=== PATIENT | female | born 1995 | race Two or more races ===

== ENCOUNTER 2019-03-10 16:16 | Inpatient (IN) | payer MEDICAID ==
[~2019-03-10] VITALS: Ht 180.3 cm; Wt 148.1 kg
--- NOTE | 2019-03-10 16:59 | NUR ---
Pt presents to ED with c/o 10/10 vaginal pain s/p 2 weeks from . Pt states she has "heavy vaginal bleeding at night" and foul smelling vaginal odor. Pt connected to NIBP cuff and continous pulse ox monitor. Call light within reach. NADN. No other needs expressed.
[2019-03-10] MEDS ORDERED: HYDROmorphone 1 MG/ML, 1ML VIAL ONE ×3 (17:22→19:31)
[2019-03-10] MEDS ORDERED: ONDANSETRON 2MG/ML, 2ML ONE (17:22)
[2019-03-10] MEDS: HYDROmorphone 2 MG/ML, 1ML IVPush PRN ×2 (17:25→18:01)
[2019-03-10] MEDS ORDERED: SODIUM CHLORIDE FLUSH 10ML SYR IVF ONE (17:30)
[2019-03-10] MEDS ORDERED: ONDANSETRON 2MG/ML, 2ML IVPush ONE (17:30)
[2019-03-10 17:39] LABS: BASOPHILS # (AUTO) 0.06 x10^3/uL (0-0.1); BASOPHILS % (AUTO) 0 % (0-1); EOSINOPHILS # (AUTO) 0.13 x10^3/uL (0-0.4); EOSINOPHILS % (AUTO) 1 % (1-7); LYMPHOCYTES # (AUTO) 1.82 x10^3/uL (1-3.4); LYMPHOCYTES % (AUTO) 12 % (22-44); MD NO; MEAN CORPUSCULAR HEMOGLOBIN 30.3 pg (27.0-34.8); MEAN CORPUSCULAR HGB CONC 32.6 g/dL (32.4-35.8); MEAN CORPUSCULAR VOLUME 92.8 fL (80-100); MEAN PLATELET VOLUME 9.2 fL (7.4-10.4); MONOCYTES # (AUTO) 1.07 x10^3/uL (0.2-0.8); MONOCYTES % (AUTO) 7 % (2-9); NEUTROPHILS # (AUTO) 12.45 x10^3/uL (1.8-6.8); NEUTROPHILS % (AUTO) 80 % (42-75); PLATELET COUNT 383 x10^3/uL (130-400); RED BLOOD COUNT 4.03 x10^6/uL (3.82-5.3); RED CELL DISTRIBUTION WIDTH 14.4 % (9.6-15.2)
[2019-03-10 17:51] LABS: ALBUMIN 3.5 g/dL (3.4-5.0); ANION GAP 7 mmol/L (5-15); CALCIUM 8.9 mg/dL (8.5-10.1); CHLORIDE 106 mmol/L (98-107)
[2019-03-10 17:58] LABS: ALANINE AMINOTRANSFERASE 38 U/L (12-78); ALKALINE PHOSPHATASE 83 U/L (45-117); BILIRUBIN,TOTAL 1.3 mg/dL (0.2-1.0); CREATININE 0.78 mg/dL (0.55-1.02); TOTAL PROTEIN 8.3 g/dL (6.4-8.2)
--- NOTE | 2019-03-10 18:52 | NUR ---
Provided report to MARLEEN Morgan. All questions answered. NADN. Eddie RN to assume care of pt at this time.
--- NOTE | 2019-03-10 18:55 | NUR ---
REPORT OF PT FROM MARLEEN GUERIN AND ASSUMING CARE OF PT AT THIS TIME.
[2019-03-10 19:03] LABS: MICROSCOPIC INDICATED
[2019-03-10 19:07] LABS: CULTURE INDICATED? YES
[2019-03-10] MEDS ORDERED: HYDROmorphone 2 MG/ML, 1ML IV ONE (19:30)
[2019-03-10] MEDS ORDERED: CLINDAMYCIN PMX 900MG/50ML 50 ML IV ONE (20:00)
[2019-03-10] MEDS ORDERED: GENTAMICIN PER PHARMACY MC PRN (20:00)
[2019-03-10] MEDS ORDERED: GENTAMICIN 200 MG in SODIUM CHLORIDE 0.9% 50 ML IV ONE (20:05)
[2019-03-10] MEDS ORDERED: PHARMACOKINETIC CONSULTATION MC ONE (20:30)
--- NOTE | 2019-03-10 20:48 | NUR ---
PT MEDICATED WITH ABX PER MAR AFTER BC X 2 DRAWN
[2019-03-10] MEDS: SODIUM CHLORIDE 0.9% 1,000 ML IV SCH (20:50)
[2019-03-10] MEDS ORDERED: ONDANSETRON ODT 4 MG PO PRN (21:00)
[2019-03-10] MEDS ORDERED: PHARMACY MAY ADJ FOR RENAL FX MC SCH (21:00)
[2019-03-10] MEDS ORDERED: ACETAMINOPHEN 325 MG TABLET PO PRN (21:00)
[2019-03-10] MEDS ORDERED: DOCUSATE 100 MG CAPSULE PO PRN (21:00)
[2019-03-10] MEDS ORDERED: BISACODYL 10 MG SUPP PR PRN (21:00)
[2019-03-10] MEDS ORDERED: POLYETHYLENE GLYCOL 17 GM PACKET PO PRN (21:00)
[2019-03-10] MEDS ORDERED: CLINDAMYCIN PMX 900MG/50ML 50 ML ONE (21:26)
--- NOTE | 2019-03-10 21:57 | NUR ---
REPORT OF PT TO MARLEEN CLOUD. ALL QUESTIONS ANSWERED. PT MEDICATED PER MAR. PT VERBALIZES UNDERSTANDING OF ROOM ASSIGNMENT AND DENIES ANY OTHER NEEDS PRIOR TO TRANSPORT.
[2019-03-10] MEDS: HYDROmorphone 2 MG/ML, 1ML IV PRN (22:46)
[2019-03-10 23:00] VITALS: BP 153/73
[2019-03-10] MEDS ORDERED: SODIUM CHLORIDE 0.9% 1,000ML IVBOLUS ONE (23:00)
[2019-03-11] MEDS: AMPICILLIN 2 GM in SODIUM CHLORIDE 0.9% 100 ML IV SCH ×4 (00:22→18:10)
[2019-03-11 00:41] LABS: CLUE CELLS NONE SEEN (NONE SEEN); WET PREP WBCS MODERATE (FEW)
[2019-03-11] MEDS: SODIUM CHLORIDE 0.9% 1,000 ML IV SCH ×6 (00:50→20:50)
[2019-03-11 01:46] VITALS: BP 123/74
[2019-03-11] MEDS: HYDROmorphone 2 MG/ML, 1ML IV PRN ×4 (01:46→15:31)
[2019-03-11] MEDS: ONDANSETRON 2MG/ML, 2ML IV PRN ×3 (02:24→22:52)
[2019-03-11 05:54] LABS: ANION GAP 6 mmol/L (5-15); CALCIUM 7.8 mg/dL (8.5-10.1); CHLORIDE 107 mmol/L (98-107)
[2019-03-11 05:59] LABS: ALANINE AMINOTRANSFERASE 47 U/L (12-78); ALKALINE PHOSPHATASE 76 U/L (45-117); BILIRUBIN,TOTAL 1.4 mg/dL (0.2-1.0); CREATININE 0.69 mg/dL (0.55-1.02)
[2019-03-11 06:09] LABS: BASOPHILS # (AUTO) 0.04 x10^3/uL (0-0.1); BASOPHILS % (AUTO) 0 % (0-1); EOSINOPHILS # (AUTO) 0.06 x10^3/uL (0-0.4); EOSINOPHILS % (AUTO) 1 % (1-7); LYMPHOCYTES # (AUTO) 2.37 x10^3/uL (1-3.4); LYMPHOCYTES % (AUTO) 19 % (22-44); MD NO; MEAN CORPUSCULAR HEMOGLOBIN 30.6 pg (27.0-34.8); MEAN CORPUSCULAR VOLUME 92.8 fL (80-100); MEAN PLATELET VOLUME 9.2 fL (7.4-10.4); MONOCYTES # (AUTO) 1.25 x10^3/uL (0.2-0.8); MONOCYTES % (AUTO) 10 % (2-9); NEUTROPHILS # (AUTO) 8.87 x10^3/uL (1.8-6.8); NEUTROPHILS % (AUTO) 70 % (42-75); PLATELET COUNT 314 x10^3/uL (130-400); RED BLOOD COUNT 3.38 x10^6/uL (3.82-5.3); RED CELL DISTRIBUTION WIDTH 14.1 % (9.6-15.2)
[2019-03-11] MEDS: HYDROcodone/APAP 5/325 TABLET PO PRN ×3 (07:49→21:05)
[2019-03-11] MEDS: SENNA/DOCUSATE TABLET PO SCH (07:49)
[2019-03-11 08:20] VITALS: BP 112/79
[2019-03-11 12:53] VITALS: BP 129/83
[2019-03-11 19:21] VITALS: BP 141/77
[2019-03-11] MEDS: KETOROLAC 30 MG/1 ML IVPush PRN (22:41)
[2019-03-12] MEDS: AMPICILLIN 2 GM in SODIUM CHLORIDE 0.9% 100 ML IV SCH ×5 (00:21→22:23)
[2019-03-12] MEDS: SODIUM CHLORIDE 0.9% 1,000 ML IV SCH ×2 (00:50→04:50)
[2019-03-12 01:11] VITALS: BP 148/65
[2019-03-12] MEDS: HYDROcodone/APAP 5/325 TABLET PO PRN (05:20)
[2019-03-12 05:28] LABS: BASOPHILS # (AUTO) 0.02 x10^3/uL (0-0.1); BASOPHILS % (AUTO) 0 % (0-1); EOSINOPHILS % (AUTO) 1 % (1-7); LYMPHOCYTES % (AUTO) 24 % (22-44); MD NO; MEAN CORPUSCULAR HEMOGLOBIN 30.6 pg (27.0-34.8); MEAN CORPUSCULAR HGB CONC 33.5 g/dL (32.4-35.8); MEAN CORPUSCULAR VOLUME 91.4 fL (80-100); MEAN PLATELET VOLUME 8.9 fL (7.4-10.4); MONOCYTES # (AUTO) 0.78 x10^3/uL (0.2-0.8); MONOCYTES % (AUTO) 10 % (2-9); NEUTROPHILS # (AUTO) 4.94 x10^3/uL (1.8-6.8); NEUTROPHILS % (AUTO) 65 % (42-75); PLATELET COUNT 330 x10^3/uL (130-400); RED BLOOD COUNT 3.57 x10^6/uL (3.82-5.3); RED CELL DISTRIBUTION WIDTH 13.6 % (9.6-15.2)
[2019-03-12] MEDS: KETOROLAC 30 MG/1 ML IVPush PRN ×2 (07:31→16:22)
[2019-03-12] MEDS: SENNA/DOCUSATE TABLET PO SCH (07:31)
[2019-03-12 07:54] VITALS: BP 109/74
[2019-03-12] MEDS ORDERED: IBUPROFEN 600 MG TABLET PO SCH (09:00)
[2019-03-12] MEDS ORDERED: AMOXICILLIN/CLAV 875-125MG TABLET PO SCH (09:00)
[2019-03-12] MEDS ORDERED: CYCLOBENZAPRINE 10 MG TABLET PO PRN (09:00)
[2019-03-12] MEDS ORDERED: GENTAMICIN 500 MG in SODIUM CHLORIDE 0.9% 100 ML IV ONE (10:00)
[2019-03-12] MEDS: CLINDAMYCIN PMX 900MG/50ML 50 ML IV SCH ×2 (11:53→19:54)
[2019-03-12] MEDS: OXYcodone 5 MG/5 ML ORAL.SOL UDC PO PRN ×2 (11:53→19:58)
[2019-03-12] MEDS: ONDANSETRON 2MG/ML, 2ML IV PRN ×2 (11:56→20:58)
[2019-03-12 15:12] VITALS: BP 108/74
[2019-03-12 19:24] VITALS: BP 125/81
[2019-03-12] MEDS: IBUPROFEN 600 MG TABLET PO SCH (22:23)
[2019-03-13 01:47] VITALS: BP 121/67
[2019-03-13] MEDS: CLINDAMYCIN PMX 900MG/50ML 50 ML IV SCH (03:55)
[2019-03-13] MEDS: AMPICILLIN 2 GM in SODIUM CHLORIDE 0.9% 100 ML IV SCH (04:52)
[2019-03-13] MEDS: IBUPROFEN 600 MG TABLET PO SCH (05:01)
[2019-03-13] MEDS: ONDANSETRON 2MG/ML, 2ML IV PRN (05:04)
[2019-03-13 05:37] LABS: BASOPHILS # (AUTO) 0.03 x10^3/uL (0-0.1); BASOPHILS % (AUTO) 1 % (0-1); EOSINOPHILS # (AUTO) 0.24 x10^3/uL (0-0.4); EOSINOPHILS % (AUTO) 4 % (1-7); LYMPHOCYTES # (AUTO) 2.24 x10^3/uL (1-3.4); LYMPHOCYTES % (AUTO) 33 % (22-44); MD NO; MEAN CORPUSCULAR HEMOGLOBIN 30.6 pg (27.0-34.8); MEAN CORPUSCULAR HGB CONC 33.1 g/dL (32.4-35.8); MEAN CORPUSCULAR VOLUME 92.3 fL (80-100); MEAN PLATELET VOLUME 9.9 fL (7.4-10.4); MONOCYTES # (AUTO) 0.79 x10^3/uL (0.2-0.8); MONOCYTES % (AUTO) 12 % (2-9); NEUTROPHILS # (AUTO) 3.52 x10^3/uL (1.8-6.8); NEUTROPHILS % (AUTO) 52 % (42-75); PLATELET COUNT 338 x10^3/uL (130-400); RED BLOOD COUNT 3.66 x10^6/uL (3.82-5.3); RED CELL DISTRIBUTION WIDTH 13.6 % (9.6-15.2)
[2019-03-13 05:46] LABS: CHLORIDE 108 mmol/L (98-107)
[2019-03-13 05:52] LABS: ALANINE AMINOTRANSFERASE 122 U/L (12-78); ALKALINE PHOSPHATASE 129 U/L (45-117); ANION GAP 6 mmol/L (5-15); BILIRUBIN,TOTAL 0.7 mg/dL (0.2-1.0); CALCIUM 8.7 mg/dL (8.5-10.1); CREATININE 0.93 mg/dL (0.55-1.02); TOTAL PROTEIN 7.3 g/dL (6.4-8.2)
[2019-03-13 07:34] VITALS: BP 119/82
[2019-03-13] MEDS ORDERED: AMOX1TAB64 PO (08:35)
[2019-03-13] MEDS ORDERED: IBUP-1222 PO (08:36)
[2019-03-13] MEDS ORDERED: OXYC5TAB3 PO (08:38)
[2019-03-13] MEDS ORDERED: ACET325C6 PO (08:41)
[2019-03-13] MEDS ORDERED: AMOXICILLIN/CLAV 875-125MG TABLET PO SCH (09:00)
[2019-03-13] MEDS: SENNA/DOCUSATE TABLET PO SCH (09:00)
== END 2019-03-13 10:43 | disposition home or self-care (01) | DRG 564 ==
LOC: ED 19:25 → EDIP 20:40 → 3N 22:05 → DCLOUNGE 03-13 10:26
PROVIDERS: ADMIT Student in an Organized Health Care Education/Training Program; ATTEND Student in an Organized Health Care Education/Training Program
PROC: 0T9B70Z Drainage of Bladder with Drainage Device, Via Natural or Artificial Opening (ICD-10-PCS; principal; 2019-03-10)
DX: O04.87 Sepsis following (induced) termination of pregnancy (principal); A41.9 Sepsis, unspecified organism; E66.01 Morbid (severe) obesity due to excess calories; Z68.42 Body mass index [BMI] 45.0-49.9, adult; A54.24 Gonococcal female pelvic inflammatory disease; J45.909 Unspecified asthma, uncomplicated; Z88.5 Allergy status to narcotic agent; Z71.3 Dietary counseling and surveillance; Z82.49 Family history of ischemic heart disease and other diseases of the circulatory system
CPT/HCPCS: 36415; 76830; 80053; 81001; 83605; 84145; 84702; 84703; 85025; 87040; 87070; 87086; 87205; 87210; 87491; 87591; 87808; 96374; 96375; 96376; 99291; G0378; J0290; J1170; J1885; J2405; J1580; J7030

== ENCOUNTER 2019-04-12 22:44 | Emergency (ER) | payer MEDICAID ==
[~2019-04-12] VITALS: Ht 177.8 cm; Wt 141.5 kg
[~2019-04-12 22:44] MED LIST: ACET325C6 PO; AMOX1TAB64 PO; IBUP-1222 PO; OXYC5TAB3 PO
[2019-04-12 22:47] VITALS: BP 132/78
[2019-04-12 23:15] LABS: MICROSCOPIC AUTO
[2019-04-12 23:21] LABS: CULTURE INDICATED? NO
[2019-04-12 23:22] LABS: BASOPHILS # (AUTO) 0.05 x10^3/uL (0-0.1); BASOPHILS % (AUTO) 1 % (0-1); EOSINOPHILS # (AUTO) 0.19 x10^3/uL (0-0.4); EOSINOPHILS % (AUTO) 3 % (1-7); LYMPHOCYTES # (AUTO) 2.88 x10^3/uL (1-3.4); LYMPHOCYTES % (AUTO) 37 % (22-44); MD NO; MEAN CORPUSCULAR HEMOGLOBIN 29.8 pg (27.0-34.8); MEAN CORPUSCULAR HGB CONC 32.9 g/dL (32.4-35.8); MEAN CORPUSCULAR VOLUME 90.8 fL (80-100); MEAN PLATELET VOLUME 9.3 fL (7.4-10.4); MONOCYTES % (AUTO) 8 % (2-9); NEUTROPHILS # (AUTO) 4.11 x10^3/uL (1.8-6.8); NEUTROPHILS % (AUTO) 52 % (42-75); PLATELET COUNT 407 x10^3/uL (130-400); RED CELL DISTRIBUTION WIDTH 14.2 % (9.6-15.2)
[2019-04-12 23:27] LABS: ANION GAP 5 mmol/L (5-15); CALCIUM 9.1 mg/dL (8.5-10.1); CHLORIDE 108 mmol/L (98-107); CREATININE 1.13 mg/dL (0.55-1.02)
--- NOTE | 2019-04-13 00:15 | NUR ---
nax1
--- NOTE | 2019-04-13 00:36 | NUR ---
na x2
--- NOTE | 2019-04-13 01:19 | NUR ---
nil X 3
== END 2019-04-13 02:22 ==
LOC: ED 04-13 02:16
DX: N93.9 Abnormal uterine and vaginal bleeding, unspecified (principal)
CPT/HCPCS: 36415; 80048; 81001; 82040; 84703; 85025; 99283

== ENCOUNTER 2019-04-20 11:55 | Emergency (ER) | payer MEDICAID ==
[~2019-04-20] VITALS: Ht 177.8 cm; Wt 143.6 kg
[2019-04-20 12:17] VITALS: BP 129/73
[2019-04-20] MEDS ORDERED: KETOROLAC 30 MG/1 ML IM ONE (12:30)
[2019-04-20] MEDS ORDERED: KETOROLAC 30 MG/1 ML ONE (12:36)
--- NOTE | 2019-04-20 12:41 | NUR ---
PT C/O RIGHT ANKLE PAIN AND SWELLING AFTER TWISTING IT YESTERDAY. ELEVATION HAS NOT ELEVIATED THE SWELLING. 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
[2019-04-20] MEDS ORDERED: HYDROcodone/APAP 5/325 TABLET ONE (13:26)
--- NOTE | 2019-04-20 13:28 | NUR ---
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 TECH AT BEDSIDE FOR SPLINT
[2019-04-20] MEDS ORDERED: HYDROcodone/APAP 5/325 TABLET PO ONE (13:30)
== END 2019-04-20 13:50 | disposition home or self-care (01) ==
LOC: ED 13:00
DX: S82.64XA Nondisplaced fracture of lateral malleolus of right fibula, initial encounter for closed fracture (principal); J45.909 Unspecified asthma, uncomplicated; F12.10 Cannabis abuse, uncomplicated; X58.XXXA Exposure to other specified factors, initial encounter; Y93.89 Activity, other specified; Y92.89 Other specified places as the place of occurrence of the external cause; Y99.8 Other external cause status
CPT/HCPCS: 29515; 73610; 96372; 99283; J1885

== ENCOUNTER 2019-08-08 18:53 | Emergency (ER) | payer MEDICAID, OTHER ==
[~2019-08-08] VITALS: Ht 180.3 cm; Wt 136.4 kg
--- NOTE | 2019-08-08 18:59 | NUR ---
PT BIB EMS S/T BILAT ANKLE PAIN. PT STATES SHE TRIPPED OVER A FLOOR MAT. DENIES ANY OTHER INJURY. PT STATES HX OF FX TO R ANKLE A COUPLE MONTHS AGO BUT DID NOT F/U WITH ORTHO. C/O INCREASED PAIN TO L ANKLE OVER R ANKLE. L FOOT TURNED INWARD SLIGHTLY, PT STATES THIS IS NOT BASELINE. CMS INTACT. 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 CALL LIGHT IN REACH. CHART UP FOR ERP.
[2019-08-08] MEDS ORDERED: FENTANYL PF 100 MCG/2ML ONE ×2 (19:17→21:47)
--- NOTE | 2019-08-08 19:20 | NUR ---
Xray at bedside
[2019-08-08] MEDS ORDERED: FENTANYL PF 100 MCG/2ML IVPush ONE ×2 (19:30→22:30)
--- NOTE | 2019-08-08 20:11 | NUR ---
PT STATES PAIN INCREASING. ERP AWARE AND WILL RECHECK BEFORE MORE MEDS GIVEN.
[2019-08-08] MEDS ORDERED: OXYcodone/APAP 10/325MG TABLET ONE ×2 (20:13→23:47)
--- NOTE | 2019-08-08 20:25 | NUR ---
Pt to CT via annalisa
[2019-08-08] MEDS ORDERED: OXYcodone/APAP 10/325MG TABLET PO ONE (20:30)
--- NOTE | 2019-08-08 20:51 | NUR ---
Pt states continued pain and requesting more meds. ERP to be notified.
--- NOTE | 2019-08-08 20:59 | NUR ---
ERP AWARE AND NO NEW MEDS TO BE GIVEN AT THIS TIME UNTIL CT READ.
--- NOTE | 2019-08-08 21:55 | NUR ---
Discussed fentanyl order and order changed from IM to IV. Pt medicated per JUN.
[2019-08-08] MEDS ORDERED: FENTANYL PF 100 MCG/2ML IM ONE (22:00)
[2019-08-09] MEDS ORDERED: OXYcodone/APAP 10/325MG TABLET PO ONE
[2019-08-09 00:33] VITALS: BP 114/75
== END 2019-08-09 00:36 | disposition home or self-care (01) ==
LOC: ED 19:08
DX: S92.222A Displaced fracture of lateral cuneiform of left foot, initial encounter for closed fracture (principal); J45.909 Unspecified asthma, uncomplicated; W01.10XA Fall on same level from slipping, tripping and stumbling with subsequent striking against unspecified object, initial encounter; Y93.89 Activity, other specified; Y92.69 Other specified industrial and construction area as the place of occurrence of the external cause; Y99.8 Other external cause status
CPT/HCPCS: 29515; 73610; 73700; 96374; 96376; 99285; J3010

== ENCOUNTER 2020-01-07 19:23 | Emergency (ER) | payer OTHER ==
[~2020-01-07] VITALS: Ht 177.8 cm; Wt 138.0 kg
--- NOTE | 2020-01-07 20:11 | NUR ---
LAWN MOWER: PT. TO ROOM FROM LOBBY AT THIS TIME.
--- NOTE | 2020-01-07 20:26 | NUR ---
THIS IS A 24 YO F W/ C/O LT FOOT INJ TODAY. PT REPORTS HX OF FX X3 MONTHS AGO. DORETHA ALLISON. AWAITING EVAL.
[2020-01-07] MEDS ORDERED: HYDROcodone/APAP 5/325 TABLET ONE (21:22)
[2020-01-07 21:25] VITALS: BP 122/81
[2020-01-07] MEDS ORDERED: HYDROcodone/APAP 5/325 TABLET PO ONE (21:30)
--- NOTE | 2020-01-07 21:40 | NUR ---
Patient given discharge instructions and they have confirmed that they understand the instructions. Patient wheeled to dc desk.
== END 2020-01-07 21:42 | disposition home or self-care (01) ==
LOC: ED 20:39
DX: S90.32XA Contusion of left foot, initial encounter (principal); X50.0XXA Overexertion from strenuous movement or load, initial encounter; Y93.89 Activity, other specified; Y92.69 Other specified industrial and construction area as the place of occurrence of the external cause; Y99.0 Civilian activity done for income or pay
CPT/HCPCS: 99283